=== PATIENT | male | born 1990 | race African-American/Black ===

== ENCOUNTER 2017-04-07 10:46 | Day surgery (SDC) | payer BC, OTHER ==
[2017-04-05 11:17] LABS: ABSOLUTE BASOPHILS # (AUTO) 0.1 10^3/uL (0.0-0.2); ABSOLUTE EOSINOPHILS # (AUTO) 0.2 10^3/uL (0.0-0.6); ABSOLUTE LYMPHOCYTES (AUTO) 1.9 10^3/uL (0.5-4.7); ABSOLUTE MONOCYTES (AUTO) 0.5 10^3/uL (0.1-1.4); BASOPHILS % (AUTO) 1.4 % (0-2); EOSINOPHILS % (AUTO) 4.1 % (0-6); HEMATOCRIT 43.2 % (37.9-51.0); HEMOGLOBIN 14.4 g/dL (13.5-17.0); LYMPHOCYTES % (AUTO) 40.8 % (13-45); MEAN CORPUSCULAR HEMOGLOBIN 29.9 pg (27.0-33.4); MEAN CORPUSCULAR HGB CONC 33.4 g/dL (32.0-36.0); MEAN CORPUSCULAR VOLUME 90 fl (80-97); MONOCYTES % (AUTO) 10.9 % (3-13); PLATELET COUNT 315 10^3/uL (150-450); RED BLOOD COUNT 4.82 10^6/uL (4.35-5.55); SEGMENTED NEUTROPHILS % (AUTO) 42.8 % (42-78); TOTAL CELLS COUNTED % (AUTO) 100 %; WHITE BLOOD COUNT 4.8 10^3/uL (4.0-10.5)
[2017-04-05 11:42] LABS: ANION GAP 14 (5-19); BLOOD UREA NITROGEN 15 mg/dL (7-20); CALCIUM 10.3 mg/dL (8.4-10.2); CARBON DIOXIDE 28 mmol/L (22-30); CHLORIDE 102 mmol/L (98-107); GLUCOSE 86 mg/dL (75-110); POTASSIUM 4.7 mmol/L (3.6-5.0); SODIUM 143.7 mmol/L (137-145)
[2017-04-05 11:52] LABS: APPEARANCE,URINE CLEAR; BILIRUBIN,URINE NEGATIVE (NEGATIVE); COLOR,URINE YELLOW; GLUCOSE, URINE NEGATIVE (NEGATIVE); KETONES,URINE NEGATIVE (NEGATIVE); LEUKOCYTE ESTERASE,URINE NEGATIVE (NEGATIVE); NITRITE,URINE NEGATIVE (NEGATIVE); PROTEIN,URINE NEGATIVE (NEGATIVE)
--- NOTE | 2017-04-05 13:30 | EKG REPORT ---
SEVERITY:- OTHERWISE NORMAL ECG - SINUS BRADYCARDIA : Confirmed by: Kentrell Hercules MD 05-Apr-2017 13:29:56
[~2017-04-07 10:46] MED LIST: CEFAZOLIN 2 GM/D5W RTU 2 GM/50 ML RTUPB IV PRN; LACTATED RINGERS 1000 ML IV PRN
[2017-04-07] MEDS ORDERED: ACETAMINOPHEN 100 ML IV ONE (12:09)
[2017-04-07] MEDS ORDERED: FENTANYL CITRATE INJ/PF 100 MCG/2 ML AMPUL ONE (12:09)
[2017-04-07] MEDS ORDERED: LIDOCAINE 2% INJ-PF (20 MG/ML) 10 ML AMPUL ONE (12:09)
[2017-04-07] MEDS ORDERED: MIDAZOLAM 2 MG/2 ML INJ ONE (12:09)
[2017-04-07] MEDS ORDERED: DEXAMETHASONE SOD PHOSPHATE INJ 4 MG/1 ML VIAL ONE (12:09)
[2017-04-07] MEDS ORDERED: PROPOFOL INJ 200 MG/20 ML VIAL IV ONE (12:09)
[2017-04-07] MEDS ORDERED: ONDANSETRON HCL INJ/PF 4 MG/2 ML SDV ONE (12:09)
[2017-04-07] MEDS ORDERED: HYDROMORPHONE HCL INJ/PF 2 MG/ML AMPULE ONE (12:10)
[2017-04-07] MEDS ORDERED: BUPIVACAINE HCL 0.5 % INJ/PF 30 ML SDV ONE (12:12)
[2017-04-07] MEDS ORDERED: OXYCODONE-ACETAMINOPHEN 5-325 MG TABLET PO PRN ×3 (12:51→14:53)
[2017-04-07] MEDS ORDERED: PROMETHAZINE HCL INJ 25 MG/1 ML VIAL IV PRN ×2 (12:51)
[2017-04-07] MEDS ORDERED: MEPERIDINE HCL/PF INJ 25 MG/1 ML DISP.SYRIN IV PRN (12:51)
[2017-04-07] MEDS ORDERED: ONDANSETRON HCL INJ/PF 4 MG/2 ML SDV IV PRN ×2 (12:51→14:53)
[2017-04-07] MEDS ORDERED: FENTANYL CITRATE INJ/PF 100 MCG/2 ML AMPUL IV PRN ×3 (12:51)
[2017-04-07] MEDS ORDERED: MORPHINE SULFATE 10 MG/ML INJ IV PRN ×2 (12:51→14:53)
[2017-04-07] MEDS ORDERED: DIPHENHYDRAMINE HCL 50 MG/ML VIAL IV PRN (12:51)
--- NOTE | 2017-04-07 14:51 | Operative Report ---
Operative Report PREOPERATIVE DIAGNOSIS: Right small finger proximal phalanx malunion POSTOPERATIVE DIAGNOSIS: Right small finger proximal phalanx malunion OPERATION: Corrective osteotomy Right small finger proximal phalanx malunion with internal fixation SURGEON: MEENA ROBERTO ANESTHESIA: GA COMPLICATIONS: None ESTIMATED BLOOD LOSS: Minimal PROCEDURE: Indication for above procedure: 26-year-old male who sustained a fracture to his right small finger. It subsequently went on to healing but patient continued to have difficulty making a full fist and deformity of the digit. We discussed treatment options including nonoperative intervention versus operative treatment. Risks and benefits were explained to the patient who verbalized understanding consented for the procedure. Procedure In Detail: Patient was seen and evaluated in the preoperative holding area. The RIGHT upper extremity was initialized and marked. Patient received 2g of Ancef IV for bacterial prophylaxis. Patient was taken back to the operative room where transferred to the operative table and placed under general anesthesia. Once they were adequately anesthetized a nonsterile tourniquet was placed on the upper extremity. A surgical team debriefing was performed ensuring all instrumentation was available, the surgical procedure was discussed with possible concerns reviewed. The upper extremity was prepped with chlorhexidine and alcohol and draped in a sterile fashion. A timeout was done identifying correct patient, procedure and extremity everyone in attendance agree with this and verbalized no concerns. The extremity was exsanguinated the tourniquet was inflated to 250 mmHg. Mid lateral skin incision was made along the ulnar border of the small finger. Blunt dissection was performed branches of the digital nerve were identified. The neurovascular bundle was identified and protected. Any small venous bleeding was coagulated with bipolar cautery. I then utilized the interval between the transverse retinacular ligament and the extensor mechanism. I carefully dissected dorsally and the periosteum was dissected off the dorsum of the proximal phalanx. The fracture line was not able to be visualized given patient's advanced healing. Thus I used C-arm fluoroscopy to identify the proximal and distal aspects of my planned osteotomy. With an oscillating saw an osteotomy was made my diet assistant irrigated the area to avoid bone necrosis. The osteotomy was then completed with a osteotome. A small amount of the bone distally was removed and placed in the back table to allow for bone graft at the completion of the case. Under C arm fluoroscopy I then corrected patient's ulnar deviation and malrotation this was held with a reduction tenaculum. C-arm demonstrated acceptable alignment. I then placed 2 interfragmentary 1.7 mm cortical screws which maintained fracture reduction. To further provide stability of the fracture I then placed a 1.7 mm Sonali mini fragmentary plate it was initially fixated distally with a bicortical screw. Then an additional screw was placed perpendicular to the osteotomy site to provide further fixation. I then completed fixation proximally under live C arm placing 2x 1.7 mm locking screws. Finally I completed fixation obtaining 6 cortices proximally and distally. There is no evidence of fracture motion. I good stability of the osteotomy site there was correction of patient's ulnar deviation alignment under direct visualization with forearm squeeze and tenodesis there was no evidence of malrotation. The wound was then copiously irrigated with normal saline. The remaining bone graft from the osteotomy was then impacted into the osteotomy site proximally provide good bone healing. The tourniquet was then deflated compression was held for 2 minutes and any remaining venous bleeding was coagulated bipolar cautery into the wound was dry. Skin was closed with interrupted 4-0 nylon suture. Wound was dressed with Xeroform 4 x 4's and patient was placed in a dorsal blocking splint. Postoperative plan: Patient will follow-up the office in 2 weeks. We will set him up for occupational therapy 7 days postoperatively to begin range of motion exercises. Will obtain radiographs at follow-up visit.
--- NOTE | 2017-04-07 14:53 | PDOC DISCHARGE SUMMARY ---
Discharge Summary (SDC) - Discharge Final Diagnosis: Right small finger proximal phalanx malunion Date of Surgery: 04/07/17 Discharge Date: 04/07/17 Condition: Good Treatment or Instructions: Schedule Follow Up w/ Dr. Surjit De Dios @ [facility] to be seen in 10-14 days or as scheduled [place]: [place]: [place]: Ice and elevate Keep splint clean/dry/intact. If your fingers become numb please unwrap the Long wrap but leave the splint in place, if the sensation does not return within 30 minutes please return to the emergency department. May begin finger range of motion attempting to make full fist. Please use ibuprofen (Motrin or Advil) 600-800 mg every 8 hours as needed for pain or fever. You may also use acetaminophen (Tylenol) 1000 mg every 4-6 hours as needed for pain or fever. Please be aware that many medications contain acetaminophen, do not exceed a total of 1000 mg of acetaminophen every 6 hours. If ibuprofen and acetaminophen are not sufficient for your pain you may take the Percocet. Please be aware that the Percocet does contain Tylenol. Stool softener of choice when on pain medication. Prescriptions: Oxycodone HCl/Acetaminophen [Percocet 7.5-325 mg Tablet] 1 - 2 tab PO ASDIR PRN #35 tab PRN Reason: Discharge Diet: As Tolerated Respiratory Treatments at Home: Deep Breathing/Coughing Discharge Activity: No Lifting Over 10 Pounds, No Lifting/Push/Pulling Report the Following to Your Physician Immediately: Fever over 101 Degrees, Unusual Bleeding, Redness, Swelling, Warmth, Increased Soreness
--- NOTE | 2017-04-07 16:34 | RADIOLOGY REPORT (SQ) ---
EXAM DESCRIPTION: NO CHG FLUORO; FINGER RIGHT COMPLETED DATE/TIME: 04/07/2017 2:52 pm REASON FOR STUDY: ORIF RT FINGER ASSISTED WITH FLUORO IN OR S62.616P DISP FX OF PROX PHALANX OF R L IT FNGR, 7THP COMPARISON: 03/18/2016. FLUOROSCOPY TIME: 1 minutes 37 seconds. 5 images saved to PACS. TECHNIQUE: Intra-operative images acquired during surgical procedure to evaluate progress. NUMBER OF IMAGES: 5 images. LIMITATIONS: None. FINDINGS: Hardware placement in the proximal phalanx of the 5th finger. IMPRESSION: IMAGE(S) OBTAINED DURING PROCEDURE. COMMENT: Quality ID [id number]: Final reports for procedures using fluoroscopy that document radiation exp osure indices, or exposure time and number of fluorographic images (if radiation exposure indices are not available) Please consult full operative report of the attending physician for description of the procedure. TECHNICAL DOCUMENTATION: JOB ID: [id number] [employer]- All Rights Reserved
[2017-04-07 17:27] VITALS: BP 144/82
== END 2017-04-07 16:45 | disposition home or self-care (01) ==
LOC: OROUT 10:46
PROVIDERS: ATTEND Orthopaedic Surgery
PROC: 0PST04Z Reposition Right Finger Phalanx with Internal Fixation Device, Open Approach (ICD-10-PCS; principal; 2017-04-07 13:00)
DX: S62.616P Displaced fracture of proximal phalanx of right little finger, subsequent encounter for fracture with malunion (principal); X58.XXXD Exposure to other specified factors, subsequent encounter
CPT/HCPCS: 93005; 36415; 85025; 80048; 81001; 73140; 93010; 26735; C1769; J2250; J1100; J3010; J1170; J2405; J2704; J3490; J0690; J0131; 01830

== ENCOUNTER 2017-10-24 06:15 | Day surgery (SDC) | payer BC, OTHER ==
[~2017-10-24 06:15] MED LIST changes: +LIDOCAINE 0.5% INJ-PF (5 MG/ML) 50 ML SDV SUBCUT PRN
[2017-10-24] MEDS ORDERED: LIDOCAINE 2% INJ-PF (20 MG/ML) 10 ML AMPUL ONE (07:02)
[2017-10-24] MEDS ORDERED: MIDAZOLAM 2 MG/2 ML INJ ONE (07:02)
[2017-10-24] MEDS ORDERED: ONDANSETRON HCL INJ/PF 4 MG/2 ML SDV ONE (07:02)
[2017-10-24] MEDS ORDERED: FENTANYL CITRATE INJ/PF 100 MCG/2 ML AMPUL ONE (07:02)
[2017-10-24] MEDS ORDERED: PROPOFOL INJ 200 MG/20 ML VIAL IV ONE (07:03)
[2017-10-24] MEDS ORDERED: ACETAMINOPHEN 1,000 MG/100 ML RTUPB IV ONE (07:03)
[2017-10-24] MEDS ORDERED: BUPIVACAINE HCL 0.5 % INJ/PF 30 ML SDV ONE (07:25)
[2017-10-24] MEDS ORDERED: LIDOCAINE 1% INJ-PF (10 MG/ML) 30 ML SDV ONE (07:25)
[2017-10-24] MEDS ORDERED: PROMETHAZINE HCL INJ 25 MG/1 ML VIAL IV PRN ×2 (09:47)
[2017-10-24] MEDS ORDERED: FENTANYL CITRATE INJ/PF 100 MCG/2 ML AMPUL IV PRN ×4 (09:47→10:44)
[2017-10-24] MEDS ORDERED: MEPERIDINE HCL/PF INJ 25 MG/1 ML DISP.SYRIN IV PRN (09:47)
[2017-10-24] MEDS ORDERED: ONDANSETRON HCL INJ/PF 4 MG/2 ML SDV IV PRN ×2 (09:47→10:44)
[2017-10-24] MEDS ORDERED: MORPHINE SULFATE 10 MG/ML INJ IV PRN (09:47)
[2017-10-24] MEDS ORDERED: DIPHENHYDRAMINE HCL 50 MG/ML VIAL IV PRN (09:47)
[2017-10-24] MEDS ORDERED: OXYCODONE-ACETAMINOPHEN 5-325 MG TABLET PO PRN (10:44)
--- NOTE | 2017-10-24 10:44 | Operative Report ---
Operative Report DATE OF SURGERY: 10/24/17 PREOPERATIVE DIAGNOSIS: Right small finger contracture status post ORIF, painful hardware POSTOPERATIVE DIAGNOSIS: Same OPERATION: 1. Right small finger PIP joint capsulotomy with contracture release. 2. Extensor Tenolysis right small finger. 3. Removal of hardware right small finger SURGEON: MEENA ROBERTO ANESTHESIA: LMAC COMPLICATIONS: None ESTIMATED BLOOD LOSS: Minimal PROCEDURE: Indication for above procedure: 27-year-old male who developed a malunion of his right small finger underwent open reduction internal fixation. Patient did well postoperatively but continues to have stiffness of his PIP joint with inability to make a full composite fist. At that point we discussed treatment options including continuing occupational therapy versus operative intervention. Once modalities of Occupational Therapy were exhausted decision was made to proceed with operative treatment. Procedure In Detail: Patient was seen and evaluated in the preoperative holding area. The RIGHT upper extremity was initialized and marked. Patient received 2g of Ancef IV for bacterial prophylaxis. Patient was taken back to the operative room where transferred to the operative table. Once they were adequately anesthetized a nonsterile tourniquet was placed on the upper extremity. A surgical team debriefing was performed ensuring all instrumentation was available, the surgical procedure was discussed with possible concerns reviewed. A digital block was performed utilizing 10 mL of 1% lidocaine without epinephrine. The upper extremity was prepped with chlorhexidine and alcohol and draped in a sterile fashion. A timeout was done identifying correct patient, procedure and extremity everyone in attendance agree with this and verbalized no concerns. The extremity was exsanguinated the tourniquet was inflated to 250 mmHg. Previous mid lateral skin incision along the ulnar border of the small finger was utilized. Blunt dissection was performed. A small peripheral veins were coagulated with bipolar cautery. The lateral bands were mobilized to expose the mini frag plate. Once the hardware was exposed it was removed successfully. The screw holes were curetted with a small curette. The extensor mechanism was then isolated and carefully elevated. A tenolysis knife was utilized to free up the extensor mechanism. Between the central slip and the lateral bands the PIP joint was exposed. A dorsal PIP joint capsulotomy was utilized which improved patient's passive flexion. With the use of a [place] blade the proper collateral ligament was released from its origin ulnarly and radially which allowed full passive flexion of the PIP joint along with full passive extension. Patient was awoken from anesthesia was able to demonstrate a full composite fist residual extensor lag of 15 The tourniquet was then deflated. Any peripheral bleeding was coagulated bipolar cautery until the wound was dry. Wound was copiously irrigated with normal saline. Skin was closed with interrupted 4-0 nylon suture. Wound was dressed with a soft dressing. Postoperative plan: Patient will begin occupational therapy within 48-72 hours for aggressive range of motion. He will begin range of motion medially postoperatively. Patient will follow-up in 2 weeks for wound check.
[2017-10-24] MEDS: FENTANYL CITRATE INJ/PF 100 MCG/2 ML AMPUL ONE ×2 (10:48→11:00)
[2017-10-24 12:38] VITALS: BP 109/69
--- NOTE | 2017-10-24 14:06 | RADIOLOGY REPORT (SQ) ---
EXAM DESCRIPTION: NO CHG FLUORO; FINGER RIGHT COMPLETED DATE/TIME: 10/24/2017 1:56 pm REASON FOR STUDY: RT FINGER HARDWARE REMOVAL ASST WITH FLUORO IN OR M24.541 CONTRACTURE, RIGHT HAND COMPARISON: 04/07/2017. FLUOROSCOPY TIME: 2 seconds. 2 images saved to PACS. TECHNIQUE: Intra-operative images acquired during surgical procedure to evaluate progress. NUMBER OF IMAGES: 2 images. LIMITATIONS: None. FINDINGS: Images of the 5th finger acquired during the procedure. IMPRESSION: IMAGE(S) OBTAINED DURING PROCEDURE. COMMENT: Quality ID 145: Final reports for procedures using fluoroscopy that document radiation exp osure indices, or exposure time and number of fluorographic images (if radiation exposure indices are not available) Please consult full operative report of the attending physician for description of the procedure. TECHNICAL DOCUMENTATION: JOB ID: [id number] [employer]- All Rights Reserved Reading location - IP/workstation name: [email or web address]
--- NOTE | 2017-10-24 14:06 | RADIOLOGY REPORT (SQ) ---
EXAM DESCRIPTION: NO CHG FLUORO; FINGER RIGHT COMPLETED DATE/TIME: 10/24/2017 1:56 pm REASON FOR STUDY: RT FINGER HARDWARE REMOVAL ASST WITH FLUORO IN OR M24.541 CONTRACTURE, RIGHT HAND COMPARISON: 04/07/2017. FLUOROSCOPY TIME: 2 seconds. 2 images saved to PACS. TECHNIQUE: Intra-operative images acquired during surgical procedure to evaluate progress. NUMBER OF IMAGES: 2 images. LIMITATIONS: None. FINDINGS: Images of the 5th finger acquired during the procedure. IMPRESSION: IMAGE(S) OBTAINED DURING PROCEDURE. COMMENT: Quality ID 145: Final reports for procedures using fluoroscopy that document radiation exp osure indices, or exposure time and number of fluorographic images (if radiation exposure indices are not available) Please consult full operative report of the attending physician for description of the procedure. TECHNICAL DOCUMENTATION: JOB ID: [id number] [employer]- All Rights Reserved Reading location - IP/workstation name: [email or web address]
--- NOTE | 2017-10-27 12:22 | Discharge Summary ---
Discharge Summary (SDC) - Discharge Final Diagnosis: Right small finger contracture status post ORIF, painful hardware Date of Surgery: 10/24/17 Discharge Date: 10/24/17 Condition: Good Treatment or Instructions: Schedule Follow Up w/ Dr. Surjit De Dios @ [facility] to be seen in 10-14 days or as scheduled [place]: [place]: [place]: May remove dressing on postop day #3, keep incision covered and dry. Ice and elevate Begin aggressive finger range of motion immediately Occupational Therapy 48-72 hours Stool softener of choice when on pain medication. Prescriptions: Ketorolac Tromethamine [Toradol 10 mg Tablet] 10 mg PO Q8HP PRN #10 tablet PRN Reason: Oxycodone HCl/Acetaminophen [Percocet 7.5-325 mg Tablet] 1 - 2 tab PO ASDIR PRN #30 tab PRN Reason: Discharge Diet: As Tolerated Respiratory Treatments at Home: Deep Breathing/Coughing Discharge Activity: No Lifting Over 10 Pounds, No Lifting/Push/Pulling Report the Following to Your Physician Immediately: Fever over 101 Degrees, Unusual Bleeding, Redness, Swelling, Warmth
== END 2017-10-24 12:30 | disposition home or self-care (01) ==
LOC: OROUT 06:15
PROVIDERS: ATTEND Orthopaedic Surgery
DX: M24.541 Contracture, right hand (principal); T84.84XA Pain due to internal orthopedic prosthetic devices, implants and grafts, initial encounter; Y83.8 Other surgical procedures as the cause of abnormal reaction of the patient, or of later complication, without mention of misadventure at the time of the procedure
CPT/HCPCS: 20680; 26445; 26525; 73140; J2250; J3010; J3490 ×2; J2405; J2704; J0690; J0131; 01830